=== PATIENT | male | born 1990 | race Caucasian/White ===

== ENCOUNTER 2019-08-01 04:06 | Inpatient (IN) | payer OTHER ==
[~2019-08-01] VITALS: Ht 157.5 cm; Wt 72.6 kg
[2019-08-06] MEDS ORDERED: Proventyl Hfa 90MG P IH (09:07)
== END 2019-08-06 09:48 | DRG 194 ==
LOC: ER 04:06 → SEC-K 13:05 → MEDI 13:48 → MEDJ 13:48 → MEDI 08-06 09:48
PROVIDERS: ADMIT Internal Medicine; ATTEND Internal Medicine
PROC: 8E0ZXY6 Isolation (ICD-10-PCS; principal; 2019-08-01)
PROC: 3E0F7GC Introduction of Other Therapeutic Substance into Respiratory Tract, Via Natural or Artificial Opening (ICD-10-PCS; 2019-08-03)
DX: J18.8 Other pneumonia, unspecified organism (principal); A90 Dengue fever [classical dengue]; R09.02 Hypoxemia; D70.3 Neutropenia due to infection; K21.9 Gastro-esophageal reflux disease without esophagitis; Q90.9 Down syndrome, unspecified